=== PATIENT | male | born 1975 | race Native Hawaiian/Other Pacific Islander ===

== ENCOUNTER 2017-07-07 14:45 | Emergency (ER) | payer OTHER ==
[~2017-07-07] VITALS: Ht 188 cm; Wt 108.9 kg
[~2017-07-07 14:45] MED LIST: BUPR1SUBFM SL; DICY20TA34 PO; DIVA500T PO; GABA300C2 PO; HYDR25TA60 PO; LEVO0.0218 PO; LORA1TAB17 PO; OMEP40CA PO; VENLAFAXINE150 M1 PO; VENLAFAXINE75 M2 PO; WELLBUTRIN150 MG PO
[2017-07-07 15:04] VITALS: BP 144/83; TEMP 97.2
== END 2017-07-07 15:27 | disposition home or self-care (01) ==
LOC: ED 14:45
DX: R11.10 Vomiting, unspecified (principal)
CPT/HCPCS: 99281

== ENCOUNTER 2018-02-03 13:31 | Outpatient (CLI) | payer OTHER | END 2018-02-03 19:44 | disposition home or self-care (01) | LOC: RAD 13:31 | DX: M77.11 Lateral epicondylitis, right elbow (principal) ==